=== PATIENT | male | born 1965 ===

== ENCOUNTER 2016-10-08 14:07 | Emergency (ER) | payer BC ==
[2016-10-08 14:14] VITALS: BP 139/89
--- NOTE | 2016-10-08 14:41 | UC ---
Rebecca Peter Alfonso, scribed for Stewart Phelps MD on 10/08/16 at 1434 . Back Pain HPI - HPI Summary HPI Summary: This patient is a 51 year old male presenting to [facility] c/o sharp back pain since 3 days ago. He states the pain radiates into his buttocks. He denies pain radiation to legs and testicles. He states I thought I was having a kidney stone. He rates the pain 7/10 in severity. Sx aggravated by movement and position. Sx alleviated by rest. Sx not alleviated by naproxen. Pt reports insomnia secondary to pain. Pt denies leg pain, leg weakness, urinary symptoms, and bowel symptoms. PMHx 3 herniated discs treated with physical therapy and diabetes mellitus. Denies PSHx of back. - History of Current Complaint Chief Complaint: UCBackPain Stated Complaint: LOWER BACK PAIN Time Seen by Provider: 10/08/16 14:21 Hx Obtained From: Patient Onset/Duration: Sudden Onset, Lasting Days - 3, Still Present Timing: Constant Severity Initially: Moderate Severity Currently: Moderate Pain Intensity: 7 Pain Scale Used: 0-10 Numeric Character: Sharp Aggravating: Movement - Movement and Position Alleviating: Rest Associated Signs And Symptoms: Positive: Other - Positive insomnia secondary to pain; negative leg pain, leg weakness, urinary symptoms, and bowel symptoms. - Allergies/Home Medications Allergies/Adverse Reactions: Allergies Allergy/AdvReac Type Severity Reaction Status Date / Time iceberg lettuce Allergy See Comment Uncoded 07/18/14 13:32 PMH/Surg Hx/FS Hx/Imm Hx - Surgical History Surgical History: Yes Surgery Procedure, Year, and Place: pianodal cyst removed,ingunial hernia repair - Family History Known Family History: Positive: Hypertension - DM TYPE 1, Diabetes - m - Social History Alcohol Use: None Substance Use Type: None Smoking Status (MU): Never Smoked Tobacco Review of Systems Gastrointestinal: Other - Negative bowel symptoms Genitourinary: Negative Musculoskeletal: Arthralgia - Positive back pain; negative leg pain Neurological: Other - Positive insomnia secondary to pain; negative leg weakness All Other Systems Reviewed And Are Negative: Yes Physical Exam Triage Information Reviewed: Yes Vital Signs: Initial Vital Signs Temp 97.8 F 10/08/16 14:09 Pulse 87 10/08/16 14:09 Resp 18 07/06/17 14:09 BP 139/89 10/08/16 14:09 Pulse Ox 100 10/08/16 14:09 Vital Signs Reviewed: Yes - Additional Comments The patient is well-nourished in no acute distress and in no acute pain. The skin is warm and dry and skin color reflects adequate perfusion. HEENT: The head is normocephalic and atraumatic. The pupils are equal and reactive. The conjunctivae are clear and without drainage. Nares are patent and without drainage. Mouth reveals moist mucous membranes and the throat is without erythema and exudate. The external ears are intact. The ear canals are patent and without drainage. The tympanic membranes are intact. Neck is supple with full range of motion and non-tender. There are no carotid bruits. There is no neck vein distension. Respiratory: Chest is non-tender. Lungs are clear to auscultation and breath sounds are symmetrical and equal. Cardiovascular: Heart is regular rate and rhythm. There is no murmur or rub auscultated. There is no peripheral edema and pulses are symmetrical and equal. Abdomen: No CVA tenderness. Musculoskeletal: Tenderness in the right-sided paravertebral musculature. Muscles spasms. No pain in buttock. Straight leg raising in both ipsilateral and contralateral sides. No motor weakness noted. Neurological: Patient is alert and oriented to person, place and time. Psychiatric: The patient has an appropriate affect and does not exhibit any anxiety or depression. Back Pain Course/Dx - Course Course Of Treatment: A 51-year-old M presents to [facility] with a CC of back pain since 3 days ago. He states the pain radiates into his buttocks. He denies pain radiation to legs and testicles. Pt reports insomnia secondary to pain. Pt denies leg pain, leg weakness, urinary symptoms, and bowel symptoms. PMHx 3 herniated discs treated with physical therapy. Patient will be discharged with follow up PCP in 3 days. Pt is agreeable with this plan. - Differential Dx/Diagnosis Differential Diagnosis/HQI/PQRI: Herniated Disc, Sprain Provider Diagnoses: acute lumbar sacral strain and sprain Discharge - Discharge Plan Condition: Stable Disposition: HOME Prescriptions: Diazepam TAB(*) [Valium TAB(*)] 5 mg PO Q6H PRN #20 tab MDD 4 PRN Reason: muscle spasm HYDROcodone/ACETAMIN 5-325 MG* [[place] 5-325 TAB*] 1 tab PO Q6H PRN #20 tab MDD 4 PRN Reason: pain Naproxen TAB* [Naprosyn 375 mg TAB*] 500 mg PO BID #30 tab Patient Education Materials: Low Back Strain (ED) Referrals: Joel Iverson PA [Primary Care Provider] - 3 Days The documentation as recorded by the Rebecca gill Alfonso accurately reflects the service I personally performed and the decisions made by , Stewart Phelps MD.
== END 2016-10-08 15:13 | disposition home or self-care (01) ==
LOC: UCEAST 14:07
DX: S39.012A Strain of muscle, fascia and tendon of lower back, initial encounter (principal); S33.5XXA Sprain of ligaments of lumbar spine, initial encounter; X58.XXXA Exposure to other specified factors, initial encounter; G47.00 Insomnia, unspecified
CPT/HCPCS: 99212; G0463

== ENCOUNTER 2017-01-22 08:20 | Emergency (ER) | payer BC ==
[2017-01-22 08:28] VITALS: BP 132/80
--- NOTE | 2017-01-22 09:00 | UC ---
Respiratory Complaint HPI - HPI Summary HPI Summary: OVER 2 WEEKS OF PRODUCTIVE COUGH. NYQUIL IS HELPING. DENIES FEVER, ST, EAR PAIN , CONGESTION, N/V/D. HAS A H/O DIABETES WHICH IS MODERATELY WELL CONTROLLED. AIC IN THE 7 RANGE. - History of Current Complaint Chief Complaint: UCRespiratory Stated Complaint: COUGH Time Seen by Provider: 01/22/17 08:50 Hx Obtained From: Patient Onset/Duration: Gradual Onset, Lasting Weeks, Still Present Severity Initially: Moderate Severity Currently: Moderate Pain Intensity: 0 Pain Scale Used: 0-10 Numeric Character: Cough: Productive Aggravating Factors: Nothing Alleviating Factors: OTC Meds - NYQUIL Associated Signs And Symptoms: Negative: Dyspnea, Fever, Chills, Pleuritic Chest Pain, Wheezing, Hemoptysis, Dizziness, Nasal Congestion, Hoarseness - Allergies/Home Medications Allergies/Adverse Reactions: Allergies Allergy/AdvReac Type Severity Reaction Status Date / Time iceberg lettuce Allergy See Comment Uncoded 07/18/14 13:32 Home Medications: Home Medications Nyquil 01/22/17 [History] metFORMIN* [Glucophage 1000 MG TAB *] 1 tab PO BID 01/22/17 [History Confirmed 01/22/17] PMH/Surg Hx/FS Hx/Imm Hx Endocrine History: Diabetes - Surgical History Surgical History: Yes Surgery Procedure, Year, and Place: pianodal cyst removed,ingunial hernia repair - Family History Known Family History: Positive: Hypertension - DM TYPE 1, Diabetes - m - Social History Alcohol Use: Occasionally Substance Use Type: None Smoking Status (MU): Never Smoked Tobacco Review of Systems Constitutional: Negative ENT: Negative Respiratory: Cough Cardiovascular: Negative Gastrointestinal: Negative All Other Systems Reviewed And Are Negative: Yes Physical Exam Triage Information Reviewed: Yes Appearance: Well-Appearing, No Pain Distress, Well-Nourished Vital Signs: Initial Vital Signs Temp 98.3 F 01/22/17 08:26 Pulse 86 01/22/17 08:26 Resp 16 01/22/17 08:26 BP 132/80 01/22/17 08:26 Pulse Ox 99 01/22/17 08:26 Vital Signs Reviewed: Yes Eyes: Positive: Conjunctiva Clear ENT: Positive: Hearing grossly normal, Pharynx normal, TMs normal Neck: Positive: Supple, Nontender, No Lymphadenopathy Respiratory Exam: Normal Cardiovascular Exam: Normal Abdomen Description: Positive: Soft Musculoskeletal: Positive: No Edema Neurological: Positive: Alert Psychological: Positive: Age Appropriate Behavior Skin: Negative: rashes UC Diagnostic Evaluation - Laboratory O2 Sat by Pulse Oximetry: 99 Respiratory Course/Dx - Differential Dx/Diagnosis Provider Diagnoses: ACUTE COUGH Discharge - Discharge Plan Condition: Stable Disposition: HOME Prescriptions: Azithromycin [Azithromycin 500 MG TAB] 500 mg PO DAILY #5 tab predniSONE TAB* [Deltasone TAB*] 40 mg PO DAILY #10 tab Patient Education Materials: Acute Cough (ED) Referrals: Joel Iverson PA [Primary Care Provider] - If Needed Additional Instructions: YOUR SYMPTOMS MAY BE VIRALLY OR ALLERGICALLY MEDIATED, HOWEVER GIVEN THE LENGTH OF TIME YOU HAVE BEEN COUGHING AND YOUR UNDERLYING DIABETES WHICH MAKES YOU MORE PRONE TO INFECTION, WILL COVER YOU FOR BACTERIAL INFECTION WITH ANTIBIOTICS. TAKE FOR THE FULL COURSE. IF YOU ARE NOT IMPROVING WITH ANTIBIOTIC TREATMENT YOU MAY START THE SHORT COURSE OF STEROIDS TO HELP CALM AIRWAY INFLAMMATION. BE AWARE THAT STEROIDS WILL MAKE YOUR SUGAR GO UP SO BE EXTRA VIGILANT ABOUT YOUR DIET DURING THIS TIME. SEEK FOLLOW-UP WITH YOUR PCP IF YOU DO NOT IMPROVE WITH THIS MANAGEMENT.
== END 2017-01-22 09:08 | disposition home or self-care (01) ==
LOC: UCEAST 08:20
DX: R05 Cough (principal)
CPT/HCPCS: 99212; G0463

== ENCOUNTER 2018-02-14 07:29 | Emergency (ER) | payer OTHER ==
[2018-02-14 07:40] VITALS: BP 136/77
[2018-02-14] MEDS ORDERED: Proparacaine 0.5% OPHTH.SOL* 15 ML BTL LEFT EYE ONE (08:02)
[2018-02-14] MEDS ORDERED: Tetracaine 0.5% OPTH.SOL 15ML* BTL LEFT EYE ONE (08:05)
[2018-02-14] MEDS ORDERED: Fluorescein Sodium TOPICAL* 1 MG TEST STRIP OPHTHALMIC ONE (08:05)
[2018-02-14] MEDS ORDERED: Tetracaine 0.5% OPTH.SOL 4 ML* 1 DROP BTL ONE (08:08)
--- NOTE | 2018-02-14 08:23 | UC ---
Eye Complaint HPI - HPI Summary HPI Summary: Patient presents with a past medical history of DM, and HTN. He presents today with 2 day onset left eye pain, and tearing. He states Wednesday he was carrying in wood and he thinks something fell out of his hair and into his right eye. He flushed it out, and this morning it feels like the object may have moved inside his eye. He now feels like something is in the medial aspect under the eye lid in his left eye. He states it feels irritated and came in to make sure there is not still something in there. He reports blurred vision during time of tearing, with upper eye lid swelling. - History of Current Complaint Chief Complaint: UCEye Stated Complaint: FOREIGN OBJECT L EYE Time Seen by Provider: 02/14/18 08:01 Hx Obtained From: Patient Onset/Duration: Sudden Onset, Lasting Days Timing: Constant Severity Initially: Mild Severity Currently: Mild Pain Intensity: 6 Location of Injury: Conjunctiva, Eye Lid (upper) Aggravating Factor(s): Light, Blinking Alleviating Factor(s): Nothing Associated Signs And Symptoms: Positive: Photophobia, Drainage (Clear), Swelling - Risk Factors Penetrating Injury Risk Factor: Negative Acute Glaucoma Risk Factors: Negative Optic Artery Occlusion Risk Factors: Negative - Allergies/Home Medications Allergies/Adverse Reactions: Allergies Allergy/AdvReac Type Severity Reaction Status Date / Time oxycodone Allergy Intermediate Hives Verified 02/14/18 07:40 iceberg lettuce Allergy See Comment Uncoded 07/18/14 13:32 Home Medications: Home Medications Empagliflozin [Jardiance] 1 tab PO DAILY 02/14/18 [History Confirmed 02/14/18] Glimepiride 1 tab PO DAILY 02/14/18 [History Confirmed 02/14/18] PMH/Surg Hx/FS Hx/Imm Hx Previously Healthy: Yes - no eye complaints. Endocrine History: Diabetes Cardiovascular History: Hypertension - Surgical History Surgical History: Yes Surgery Procedure, Year, and Place: pianodal cyst removed,ingunial hernia repair - Family History Known Family History: Positive: Hypertension - DM TYPE 1, Diabetes - m - Social History Occupation: Employed Full-time Alcohol Use: Occasionally Substance Use Type: None Smoking Status (MU): Never Smoked Tobacco - Immunization History Most Recent Tetanus Shot: UTD Review of Systems All Other Systems Reviewed And Are Negative: Yes Constitutional: Positive: Negative Skin: Positive: Negative Eyes: Positive: Blurred Vision, Drainage, Eye Redness, Photophobia ENT: Positive: Negative Respiratory: Positive: Negative Cardiovascular: Positive: Negative Gastrointestinal: Positive: Negative Genitourinary: Positive: Negative Motor: Positive: Negative Neurovascular: Positive: Negative Musculoskeletal: Positive: Negative Neurological: Positive: Negative Psychological: Positive: Negative Physical Exam Triage Information Reviewed: Yes Appearance: Well-Appearing Vital Signs: Initial Vital Signs Temp 97.6 F 02/14/18 07:35 Pulse 79 02/14/18 07:35 Resp 18 02/14/18 07:35 BP 136/77 02/14/18 07:35 Pulse Ox 98 02/14/18 07:35 Vital Signs Reviewed: Yes Eyes: Positive: Conjunctiva Inflamed, Other: - left eye inspection: upper lid swelling, with mild erythema. conjunctiva inflammed, and sclera with injection, tearing present. EOM intact. No foreign body visualized. Corneal abrasion noted at 12:00 located under the lid of the superior aspect of cornea. ENT Exam: Normal Neck exam: Normal Respiratory Exam: Normal Cardiovascular Exam: Normal Musculoskeletal Exam: Normal Neurological Exam: Normal Neurological: Positive: Alert Eye Complaint Course/Dx - Course Course Of Treatment: Patient presents with a past medical history of DM, nd HTN. He is 2 days s/p foreign body in left eye. Today I did not visualized any foreign body in the left eye, there is a corneal abasion. He was prescribed erthromycin opth ointment to be applyied three times a day, and told to follow up with the eye doctor in 48 hours, and return here if his symtpoms should get worse.He verbalized understanding of and in agreement with the discharge plan. - Differential Dx/Diagnosis Differential Diagnosis/HQI/PQRI: Corneal Abrasion Provider Diagnoses: Corneal abrasion Discharge - Sign-Out/Discharge Documenting (check all that apply): Patient Departure All imaging exams completed and their final reports reviewed: Yes - Discharge Plan Condition: Stable Disposition: HOME Prescriptions: Erythromycin OPTH OINT* [Erythromycin 0.5% OPTH OINT*] 1 applic LEFT EYE TID #1 ophth.oint Patient Education Materials: Corneal Abrasion (DC) Referrals: Joel Iverson PA [Primary Care Provider] - Nicholas Worley MD [Medical Doctor] - Additional Instructions: I recommend that you follow up with the eye doctor within 48 hours. - Billing Disposition and Condition Condition: STABLE Disposition: Home - Attestation Statements Provider Attestation: Per institutional requirements, I have reviewed the chart, however, I was not consulted specifically or made aware of this patient by the midlevel provider. I did not personally evaluate, interact with , or disposition this patient.
== END 2018-02-14 08:18 | disposition home or self-care (01) ==
LOC: UCEAST 07:29
DX: S05.02XA Injury of conjunctiva and corneal abrasion without foreign body, left eye, initial encounter (principal); E11.9 Type 2 diabetes mellitus without complications; I10 Essential (primary) hypertension; Z88.5 Allergy status to narcotic agent; Z91.018 Allergy to other foods; X58.XXXA Exposure to other specified factors, initial encounter; Y92.9 Unspecified place or not applicable
CPT/HCPCS: 99212; A9270-GY; G0463